=== PATIENT | male | born 1995 | race African-American/Black ===

== ENCOUNTER 2017-04-23 23:18 | Emergency (ER) | payer MEDICAID ==
[~2017-04-23] VITALS: Ht 177.8 cm; Wt 83.9 kg
[2017-04-23 23:26] VITALS: BP 146/86
[2017-04-24] MEDS ORDERED: CYCLOBENZAPRINE HCL 10 MG TAB PO ONE (03:15)
[2017-04-24] MEDS ORDERED: IBUPROFEN 600 MG TAB PO ONE (03:15)
== END 2017-04-24 03:48 | disposition home or self-care (01) ==
LOC: ER 23:18
DX: S39.012A Strain of muscle, fascia and tendon of lower back, initial encounter (principal); M20.011 Mallet finger of right finger(s); V49.49XA Driver injured in collision with other motor vehicles in traffic accident, initial encounter; Y93.89 Activity, other specified; Y99.8 Other external cause status; Y92.410 Unspecified street and highway as the place of occurrence of the external cause
CPT/HCPCS: 73140

== ENCOUNTER 2023-06-13 19:20 | Emergency (ER) | payer MEDICAID ==
[~2023-06-13] VITALS: Ht 175.3 cm; Wt 113.0 kg
[2023-06-13 19:20] VITALS: BP 106/62; PULSE 74; RESP 18; O2SAT 96
== END 2023-06-14 01:58 | disposition left against medical advice (07) ==
LOC: ER 19:20
DX: S01.21XA Laceration without foreign body of nose, initial encounter (principal); S61.412A Laceration without foreign body of left hand, initial encounter; Z53.21 Procedure and treatment not carried out due to patient leaving prior to being seen by health care provider; X58.XXXA Exposure to other specified factors, initial encounter; Y93.89 Activity, other specified; Y92.89 Other specified places as the place of occurrence of the external cause; Y99.8 Other external cause status